=== PATIENT | female | born 1965 | race Hispanic/Latino ===

== ENCOUNTER 2016-12-08 11:26 | Outpatient (CLI) | payer OTHER ==
--- NOTE | 2016-12-08 11:56 | XRay Report ---
RIGHT FOOT RADIOGRAPHS INDICATION: Foot pain. COMPARISON: None similar. FINDINGS: AP, lateral and oblique right foot radiographs demonstrate normal bony articulation and appearance except for possible slight hallux valgus. Normal soft tissues. CONCLUSION: No acute right foot radiographic abnormality. Thank you for the opportunity to participate in this patient's care.
== END 2016-12-08 11:27 | disposition home or self-care (01) ==
LOC: SPVIMAG 11:26
PROVIDERS: ATTEND Internal Medicine
DX: M79.671 Pain in right foot (principal)